=== PATIENT | female | born 1990 | race Caucasian/White ===

== ENCOUNTER 2021-06-16 14:05 | Outpatient (REF) | payer OTHER, SELFPAY ==
[2021-06-17 02:13] LABS: CT PCR NOT DETECTED (Not Detect.); NG PCR NOT DETECTED (Not Detect.)
[2021-06-17 13:12] LABS: BV Int Neg Control Negative (Negative); BV Int Pos Control Positive (Positive)
[2021-06-19 09:57] LABS: HPV mRNA E6/E7 rflx Not Detected (Not Detected)
== END 2021-06-16 14:06 | disposition home or self-care (01) ==
LOC: HO.LAB 14:05
PROVIDERS: PCP Nurse Practitioner Family; Visit Provider Advanced Practice Midwife
DX: Z30.432 Encounter for removal of intrauterine contraceptive device (principal); Z20.2 Contact with and (suspected) exposure to infections with a predominantly sexual mode of transmission
CPT/HCPCS: 58301; 87480; 87491; 87510; 87591; 87624; 87660; 88142

== ENCOUNTER → 2021-09-22 13:10 | Outpatient (BNVA) | payer OTHER, SELFPAY | PROVIDERS: PCP Nurse Practitioner Family; Visit Provider Advanced Practice Midwife | DX: Z30.09 Encounter for other general counseling and advice on contraception (principal) | CPT/HCPCS: 99212 ==

== ENCOUNTER 2022-11-08 10:42 | Outpatient (REF) | payer OTHER, SELFPAY ==
[2022-11-08 18:48] LABS: CT PCR NOT DETECTED (Not Detect.); NG PCR NOT DETECTED (Not Detect.)
[2022-11-09 14:04] LABS: BV Int Neg Control Negative (Negative); BV Int Pos Control Positive (Positive)
== END 2022-11-08 10:43 | disposition home or self-care (01) ==
LOC: HO.LNP 10:42
PROVIDERS: PCP Nurse Practitioner Family; Visit Provider Advanced Practice Midwife
DX: Z30.09 Encounter for other general counseling and advice on contraception (principal); Z20.2 Contact with and (suspected) exposure to infections with a predominantly sexual mode of transmission
CPT/HCPCS: 0353U; 87480; 87510; 87660

== ENCOUNTER 2022-11-08 10:42 | Outpatient (AMB) | payer OTHER, SELFPAY ==
--- NOTE | 2022-11-08 10:45 | MHC.OFFVIS ---
Intake Vital Signs 11/08/22 10:48 Height 5 ft 3 in Weight 142 lb BMI 25.2 BP 120/70 Intake Visit Reasons: Annual/DO NOT RS Intake Note: no concerns Desktop Support Consultant Required: No Information Interpreted: non-clinical & clinical Global Account Director: Global Account Director Present (Millie LAGOS) Accompanied by: Self / Same As Patient Allergies tree nut [TREE NUT] Allergy (Unknown, Verified 11/08/22 10:49) ANGIOEDEMA Medication List - Last Reconciled 11/08/22 by Juana Bhagat CNM No Known Home Meds Is last menstrual period known: Yes Last menstrual period: 10/21/22 HPI Annual/DO NOT RS HPI Details 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 She is not on the control pills anymore she started feeling like her moods for little bit different and she was sort of angry and snapping all the time to people and so she stop the pills and she feels like every things much more level and while she does notice mood changes at different times of her cycle she likes how she feels being off of the pills. She is tracking her cycle both with a nap and also being super aware of the anatomical and physiological changes she goes through throughout her cycle and can tell when she is ovulating and also she avoids sex at those times and is very careful she has been with this partner for about a year and is beginning to talk about future childbearing and so if they got it would not be awful. She does yoga and hiking and stays physically active and is healthy and eats well. She takes some natural herbal and mineral supplement PFSH Family History Paternal Grandfather Substance use disorder Maternal Grandfather Substance use disorder Maternal Uncle Substance use disorder Mental health disorder Social History (Updated 11/08/22 @ 10:51 by Millie Anderson CMA) Household Members: Family Housing: House Patient Tobacco Use Status: Former Tobacco user Quit Date: quit 2 years ago e-Cigarette/Vaping Use: Currently Using service: No Current occupational status: employed Current occupation: [employer] Current occupational exposures/hazards: No Sexual orientation: Straight/Heterosexual Gender identity: Female Cognitive needs: No Hearing needs: No Vision needs: No Female Reproductive History Menstrual Age of Menarche: 11 Duration of menses: 3-5 days Date of last menstrual period: 10/21/22 Total pregnancies: 2 Number of Living Children: 0 Ab induced: 2 Date of last pap smear: 06/17/21 History of abnormal pap smear: No Physical Exam Vital Signs: Last Vital Signs BP 120/70 11/08/22 10:48 BMI result Body Mass Index 25.2 Const General: healthy appearing, comfortable, no acute distress, well developed and alert Nutritional Appearance: average body habitus Orientation/consciousness: patient oriented x3 Limitations: no limitations HEENT Head: Yes normocephalic Neck Neck: Yes normal visual inspection Chest Chest palpation & inspection: normal inspection of the chest Breast/axilla inspection: normal inspection of the breasts and normal inspection of the axillae Breast/axilla palpation: normal palpation of the breasts and normal palpation of the axillae Resp Effort & Inspection: normal respiratory effort GI Inspection: Yes normal to inspection, No Abdominal wall edema and No distended Palpation (GI): Soft to palpation and nontender Other: Normal vulva normal pink healthy vagina normal appearing clear mucus cervix nulliparous with clear mucus that is becoming more gel like uterus small retroverted nontender adnexa nontender not enlarged good tone with Kegel General: Yes bladder normal to palpation External Female Exam: normal external appearance and normal appearance of the urethra Speculum Exam - Vagina: normal appearance of the vagina, normal palpation and normal vaginal discharge Speculum Exam - Cervix: normal appearance of the cervix, normal palpation and nontender Bimanual exam- vagina & uterus: normal bimanual exam, normal palpation, uterine size normal, bladder normal to palpation, consistency normal, normal palpation, uterine mobility normal, uterine shape normal, No Cervical tenderness present, non-tender and no cervical motion tenderness Bimanual Exam- Adnexa, other: normal adnexae, no masses, normal and No adnexal tenderness Neuro General: patient oriented x3 Assessment & Plan Assessment & Plan (1) Cervical cancer screening: Comment: 06/16/21 pap = neg w neg hpv. Code(s): Z12.4 - Encounter for screening for malignant neoplasm of cervix (2) Potential exposure to STD: Code(s): Z20.2 - Contact with and (suspected) exposure to infections with a predominantly sexual mode of transmission (3) Well woman exam with routine gynecological exam: Code(s): Z01.419 - Encounter for gynecological examination (general) (routine) without abnormal findings (4) control counseling: Code(s): Z30.09 - Encounter for other general counseling and advice on contraception Plan -----Discussed in this visit the following: healthy balanced diet, regular and consistent exercise, getting recommended health screens, doing the best she can for her particular health concerns, kegel exercises, pap smear screening and followup recommendations, mammography screening and SBE, normal changes in cycles in her life stage--- .----I reviewed available options for Control Methods and their associated side effect profiles. In particular, we discussed the method most of interest to her.-reviewed--I discussed being aware of the symptoms of ovulation both with cervical mucous changes , libido changes and all of the other indications, Reviewed with pt some of the optimal strategies for planning a , including achieving the best health she can before , including heathy balanced diet, exercise, wt loss to ideal BMI if appropriate, avoiding toxic substances and medications, not smoking, and taking a multivitamin w folic acid daily. Any specific health concerns should be managed before seeking/ putting oneself at risk of . In addition I reviewed normal cycles, fertility awareness and signs of ovulation, and timing to avoid, and achieve when she feel ready. I also discussed emotional and relationship and support readiness before embarking on . Also discussed that since we do not have a birthing center here anymore while we can provide care for women who choose to come here and then deliver at [facility] for a 1st most women would have lots of questions and I would recommend considering starting with the team that she would choose to help her throughout the journey so that she would get to adds all her questions all throughout the with the folks who would be delivering her. Testing for STIs was offered. She had a completely normal exam uterus is small and retroverted very clear cervix with clear gel that appears to be status post somewhat recent ovulation and that jobs with her awareness as well. RTC 1 year or p.r.n. her next Pap would be 5 years from last year's Coding Level of Care Code Est Pt Prev Care 18-39y(40218) Diagnoses Cervical cancer screening Z12.4 Potential exposure to STD Z20.2 Well woman exam with routine gynecological exam Z01.419 control counseling Z30.09
[2022-11-08 10:48] VITALS: BP 120/70; BMI 25.2
== END 2022-11-08 11:35 | disposition home or self-care (01) ==
LOC: HO.HWS 10:42
PROVIDERS: PCP Nurse Practitioner Family; Visit Provider Advanced Practice Midwife
DX: Z01.419 Encounter for gynecological examination (general) (routine) without abnormal findings (principal); Z12.4 Encounter for screening for malignant neoplasm of cervix; Z20.2 Contact with and (suspected) exposure to infections with a predominantly sexual mode of transmission; Z30.09 Encounter for other general counseling and advice on contraception
CPT/HCPCS: 99395

== ENCOUNTER 2023-03-22 08:58 | Outpatient (AMB) | payer OTHER, SELFPAY ==
--- NOTE | 2023-03-22 08:59 | A.OFFVIS_ITS ---
Intake Vital Signs 03/22/23 09:06 Height 5 ft 3 in Weight 146 lb BMI 25.9 BP 100/60 Intake Visit Reasons: preg consult Enterprise Account Executive Required: No Information Interpreted: clinical only Clinical Nursing Assistant: Clinical Nursing Assistant Present Allergies tree nut [TREE NUT] Allergy (Unknown, Verified 03/22/23 08:59) ANGIOEDEMA Is last menstrual period known: Yes Last menstrual period: 01/29/23 Do you need a note to return to daycare/school/sports/work: No PFSH Family History Paternal Grandfather Substance use disorder Maternal Grandfather Substance use disorder Maternal Uncle Substance use disorder Mental health disorder Social History Household Members: Family Housing: House Patient Tobacco Use Status: Former Tobacco user Quit Date: quit 2 years ago e-Cigarette/Vaping Use: Currently Using service: No Current occupational status: employed Current occupation: [employer] Current occupational exposures/hazards: No Sexual orientation: Straight/Heterosexual Gender identity: Female Cognitive needs: No Hearing needs: No Vision needs: No Female Reproductive History Menstrual Age of Menarche: 11 Date of last menstrual period: 01/29/23 control method: none Total pregnancies: 1 Full term: 0 Date of last pap smear: 06/17/21 (negative) History of abnormal pap smear: No Physical Exam Vital Signs: Last Vital Signs BP 100/60 03/22/23 09:06 BMI result Body Mass Index 25.9 Coding
[2023-03-22 09:06] VITALS: BP 100/60; BMI 25.9
--- NOTE | 2023-03-22 09:15 | A.OFFVISPN_ITS ---
Intake Vital Signs 03/22/23 09:06 Height 5 ft 3 in Weight 146 lb BMI 25.9 BP 100/60 Intake Visit Reasons: preg consult Allergies tree nut [TREE NUT] Allergy (Unknown, Verified 03/22/23 08:59) ANGIOEDEMA Medication List - Last Reconciled 03/22/23 by Juana Bhaagt CNM No Known Home Meds PFSH Family History Paternal Grandfather Substance use disorder Maternal Grandfather Substance use disorder Maternal Uncle Substance use disorder Mental health disorder Social History Household Members: Family Housing: House Patient Tobacco Use Status: Former Tobacco user Quit Date: quit 2 years ago e-Cigarette/Vaping Use: Currently Using service: No Current occupational status: employed Current occupation: [employer] Current occupational exposures/hazards: No Sexual orientation: Straight/Heterosexual Gender identity: Female Cognitive needs: No Hearing needs: No Vision needs: No Female Reproductive History Menstrual Age of Menarche: 11 History History 2 Elective abortions 2 Para Spontaneous abortions 2 Hx # Term Pregnancies Ectopic pregnancies Hx # Pregnancies Multiple births Results AMB Test Urine AMB Test Urine Positive Last Edit by Anselmo Dominguez CMA on 03/22/23 09:22 Results Reviewed Results Reviewed: Laboratory Last Values [facility] Positive 03/22/23 09:21 Coding Assessment & Plan Assessment & Plan Orders: Orders AMB HCG Urine Test Today Z32.01 - Encounter for test, result positive
--- NOTE | 2023-03-22 09:25 | MHC.OFFVIS ---
Intake Vital Signs 03/22/23 09:06 03/22/23 09:26 Height 5 ft 3 in Weight 146 lb BMI 25.9 25.9 BP 100/60 Intake Visit Reasons: preg consult Technical Publications Manager Required: No Information Interpreted: clinical only Collar Band Creaser: Collar Band Creaser Present Allergies tree nut [TREE NUT] Allergy (Unknown, Verified 03/22/23 08:59) ANGIOEDEMA Medication List - Last Reconciled 03/22/23 by Juana Bhagat CNM No Known Home Meds Is last menstrual period known: Yes Last menstrual period: 01/29/23 Patient : Yes Do you need a note to return to daycare/school/sports/work: No HPI preg consult HPI Details Patient is here for consult visit she stopped the pills sometime ago and was beginning to have conversations about openness to though the exact occurrence is a surprise but she and her partner are happy. Her last menstrual period was 01/29/2023. But she did not think that she had sex and a time that she was ovulating so that pees is a little bit of a mystery. 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 She has been staying with her boyfriend in [place] and is considering midwifery practices in the [place] area. She is healthy and takes care of herself and eats very healthy and is paying attention to what is safe to eat in she is finding that if she keeps crackers by the bed and eats when she 1st wakes up that helps her through the day so far. She is curious about how far along she is. by her dates she would be 7 weeks and 3 days. [facility] Family History Paternal Grandfather Substance use disorder Maternal Grandfather Substance use disorder Maternal Uncle Substance use disorder Mental health disorder Social History Household Members: Family Housing: House Patient Tobacco Use Status: Former Tobacco user Quit Date: quit 2 years ago e-Cigarette/Vaping Use: Currently Using service: No Current occupational status: employed Current occupation: [employer] Current occupational exposures/hazards: No Sexual orientation: Straight/Heterosexual Gender identity: Female Cognitive needs: No Hearing needs: No Vision needs: No Female Reproductive History Menstrual Age of Menarche: 11 Date of last menstrual period: 01/29/23 Date of last pap smear: 06/17/21 History of abnormal pap smear: No Physical Exam Vital Signs: Last Vital Signs BP 100/60 03/22/23 09:06 BMI result Body Mass Index 25.9 Results AMB Test Urine AMB Test Urine Positive Last Edit by Anselmo Dominguez CMA on 03/22/23 09:22 Results Reviewed Results Reviewed: Laboratory Last Values [facility] Clinic Positive 03/22/23 09:21 Assessment & Plan Assessment & Plan (1) Early stage of : Comment: LMP 01/29/2023, NATALIE 11/06/2023 by dates 7 and 3 sevens today, nausea in last couple of weeks will get dating ultrasound patient will be seeking care in the [facility] Code(s): Z34.90 - Encounter for supervision of normal , unspecified, unspecified trimester Plan ---I reviewed the patient's medical history and risk factors for . I reviewed her menstrual history and regularity, and reviewed the dating of her last menstrual period and other indicators. I reviewed where she is in this , and what to expect in this early stage of the . ---I reviewed the routines of care. I reviewed the options open to her including care here and that delivery does not occur here; it occurs currently at our referring institution.. I also reviewed the options of receiving care and delivery at [facility], and [facility] or [facility], or the [facility] if appropriate. I reviewed high risk factors that would necessitate a transfer of her care to [facility]. ---I reviewed basic good health and ways to achieve a healthy and goals. I reviewed warning signs that would necessitate calling us: for instance, severe pain, bleeding, severe nausea and vomiting, such that she is unable to keep anything down and feeling weak. ---I discussed next steps, if she continues care here, including scheduling of the cement mixer driver visit, and blood work, scheduling of the OB physical visit with a care provider, and timing and scheduling of initial ultrasounds and genetic screening and their purpose. I ordered vitamins for her if she did not have them. I reviewed basic healthy goals with diet and active exercise and activity and avoidance of toxic substances.. I reviewed emotional supports and stressors in her life, and family relationship and supports including partner supports.. I am ordering a dating ultrasound for her and in the meantime she will start calling and deciding where she wants to go get care in the [facility] area and we did discuss the options and I did recommend that she would receive good care at [facility] midwifery. We will have a visit and it can be a tele visit after the results of the ultrasound are in. Orders: Orders AMB HCG Urine Test Today Z32.01 - Encounter for test, result positive US OB <= 14 weeks fetus Today Z34.90 - Encounter for supervision of normal , unspecified, unspecified trimester Coding Level of Care Code Est Pt Level 3 (37111) Diagnoses Early stage of Z34.90
[2023-03-22 09:26] VITALS: BMI 25.9
== END 2023-03-22 10:27 | disposition home or self-care (01) ==
LOC: HO.HWSM 08:58
PROVIDERS: PCP Nurse Practitioner Family; Visit Provider Advanced Practice Midwife
DX: Z32.01 Encounter for pregnancy test, result positive (principal); Z34.90 Encounter for supervision of normal pregnancy, unspecified, unspecified trimester
CPT/HCPCS: 99213

== ENCOUNTER → 2023-03-22 08:58 | Outpatient (BNVA) | payer OTHER, SELFPAY | PROVIDERS: PCP Nurse Practitioner Family; Visit Provider Advanced Practice Midwife | DX: Z34.90 Encounter for supervision of normal pregnancy, unspecified, unspecified trimester (principal) | CPT/HCPCS: 81025; 99212 ==

== ENCOUNTER 2023-04-17 15:03 | Outpatient (REF) | payer OTHER, SELFPAY ==
--- NOTE | ~2023-04-17 | US_ITS ---
EXAMINATION: US OBSTETRICAL ULTRASOUND CLINICAL INFORMATION: For size and dates. COMPARISON: None available. LMP: 01/29/2023. Gestational age by maternal dates is 11 weeks and 1 day. Estimated date of delivery by maternal dates is 11/05/2023. TECHNIQUE: Ultrasound of the maternal pelvis is performed using transabdominal transducer. M-mode Doppler is also performed. FINDINGS: There is a single intrauterine gestational sac with visible yolk sac, embryo/fetus, and cardiac activity. There is no significant subchorionic hemorrhage or hematoma. HR: 172 beats per minute. CRL (crown rump length): 5.14 cm (11 weeks and 6 days +/- 4 days). NATALIE (estimated date of delivery): 10/31/2023 +/- 4 days. MATERNAL ADNEXA: The right maternal ovary is not visualized. The left maternal ovary measures 3.1 x 2.0 x 2.3 cm. There is no significant maternal adnexal mass. No maternal pelvic ascites. A 3.2 x 2.1 x 1.7 cm Joselyn duct cyst is seen. US/US OB <= 14 weeks fetus IMPRESSION: 1. Single intrauterine gestation with ultrasound gestational age of 11 weeks and 6 days +/- 4 days. 2. Estimated date of delivery is 10/31/2023 +/- 4 days. 3. The right ovary is not visualized. 4. No maternal adnexal mass or pelvic ascites. 5. A 3.2 cm Joselyn duct cyst is seen.
== END 2023-04-17 15:04 | disposition home or self-care (01) ==
LOC: HO.US 15:03
PROVIDERS: PCP Nurse Practitioner Family; Visit Provider Advanced Practice Midwife
DX: Z34.90 Encounter for supervision of normal pregnancy, unspecified, unspecified trimester (principal)
CPT/HCPCS: 76801

== ENCOUNTER 2023-04-24 09:21 | Outpatient (AMB) | payer OTHER, SELFPAY ==
--- NOTE | 2023-04-24 09:21 | MHC.OFFVIS ---
Intake Intake Visit Reasons: TV US follow up/pls dial exactly Glueline Worker Required: No Allergies tree nut [TREE NUT] Allergy (Unknown, Verified 04/24/23 09:21) ANGIOEDEMA Medication List - Last Reconciled 04/24/23 by Juana Bhagat CNM No Known Home Meds Is last menstrual period known: Yes Last menstrual period: 01/26/23 Post menopausal: No HPI TV US follow up/pls dial exactly HPI Details This is a tele visit to review patient's ultrasound that was done on 04/17/2023 which placed her at 11 weeks and 6 days yielding an NATALIE of 10/31/2023 this was very close to an NATALIE there was established by her LMP of 01/29/2023. She had been seen in March on 03/22/2023 and full discussion of options of care sites had occurred as well as discussion of next steps testing that would be recommended including 1st trimester screens. The ultrasound did not occur for another 3 and half weeks and this is the follow-up visit. 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 She is taking her vitamins she has not yet decided where she would want to go for care but she is speaking with her boyfriend about this and thinking about things that she will want her delivery and hoping he will advocate for her and her plan. She is staying mostly with her boyfriend in [place] currently. [facility] Family History Paternal Grandfather Substance use disorder Maternal Grandfather Substance use disorder Maternal Uncle Substance use disorder Mental health disorder Social History Household Members: Family Housing: House Patient Tobacco Use Status: Former Tobacco user Quit Date: quit 2 years ago e-Cigarette/Vaping Use: Currently Using service: No Current occupational status: employed Current occupation: [employer] Current occupational exposures/hazards: No Sexual orientation: Straight/Heterosexual Gender identity: Female Cognitive needs: No Hearing needs: No Vision needs: No Female Reproductive History Menstrual Age of Menarche: 11 Date of last menstrual period: 01/26/23 Results Reviewed Results Reviewed: Patient: Josiane Medrano MR#: [id number] : 1990 Acct:[id number] Age/Sex: 32 / F ADM Date: 04/17/23 Loc: HO.US Attending Dr: Juana Bhagat CNM Ordering Physician: Juana Bhagat CNM Date of Service: 04/17/23 Procedure(s): US OB <= 14 weeks fetus Accession Number(s): [id number] cc: Bi Murphy-; Juana Bhagat CNM~ EXAMINATION: US OBSTETRICAL ULTRASOUND CLINICAL INFORMATION: For size and dates. COMPARISON: None available. LMP: 01/29/2023. Gestational age by maternal dates is 11 weeks and 1 day. Estimated date of delivery by maternal dates is 11/05/2023. TECHNIQUE: Ultrasound of the maternal pelvis is performed using transabdominal transducer. M-mode Doppler is also performed. FINDINGS: There is a single intrauterine gestational sac with visible yolk sac, embryo/fetus, and cardiac activity. There is no significant subchorionic hemorrhage or hematoma. HR: 172 beats per minute. CRL (crown rump length): 5.14 cm (11 weeks and 6 days +/- 4 days). NATALIE (estimated date of delivery): 10/31/2023 +/- 4 days. MATERNAL ADNEXA: The right maternal ovary is not visualized. The left maternal ovary measures 3.1 x 2.0 x 2.3 cm. There is no significant maternal adnexal mass. No maternal pelvic ascites. A 3.2 x 2.1 x 1.7 cm Joselyn duct cyst is seen. US/US OB <= 14 weeks fetus IMPRESSION: 1. Single intrauterine gestation with ultrasound gestational age of 11 weeks and 6 days +/- 4 days. 2. Estimated date of delivery is 10/31/2023 +/- 4 days. 3. The right ovary is not visualized. 4. No maternal adnexal mass or pelvic ascites. 5. A 3.2 cm Joselyn duct cyst is seen. Dictated By: Bi Arenas MD Signed By: <Electronically signed by Bi Arenas MD in OV> 04/19/23 1119 DD/ 1600 TD/TT: Tractor Trailer Moving Van Driver: JED Assessment & Plan Assessment & Plan (1) Early stage of : Comment: LMP 01/29/2023, NATALIE 11/06/2023 by dates 7 and 3 sevens today, nausea in last couple of weeks will get dating ultrasound patient will be seeking care in the [place] area Code(s): Z34.90 - Encounter for supervision of normal , unspecified, unspecified trimester Plan This is a tele visit to review patient's ultrasound that was done on 04/17/2023 which placed her at 11 weeks and 6 days yielding an NATALIE of 10/31/2023 this was very close to an NATALIE there was established by her LMP of 01/29/2023. She had been seen in March on 03/22/2023 and full discussion of options of care sites had occurred as well as discussion of next steps testing that would be recommended including 1st trimester screens. The ultrasound did not occur for another 3 and half weeks and this is the follow-up visit. 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 She is taking her vitamins she has not yet decided where she would want to go for care but she is speaking with her boyfriend about this and thinking about things that she will want her delivery and hoping he will advocate for her and her plan. She is staying mostly with her boyfriend in [place] currently. I again reviewed options for care including staying with us and delivering at [facility] versus finding 1 of the other practices in I did review all of them again. She has the list at home. She is still thinking about it. In the meantime it is now further long in the and she is now 13 weeks and 0 days today it is too late to ordered the 1st trimester nuchal translucency ultrasound or first-trimester blood work screening. I asked her if I had her permission to go ahead and order the panoramic testing for her which is a more comprehensive screening for genetic anomalies and that we would proceed and schedule appointments with the RN for the intake and on from that with care and if she decides to go elsewhere than she would simply make an appointment elsewhere and sign for record transfer. Discussed the challenge of sleeping sometimes when we have things on her mind. Suggested writing down any worries she has so she can discuss them at a visit if that is where she needs to talk about it. She has not having any trouble with eating or anything. Message sent to nurses about the need for the panoramic and motor vehicle emissions inspector. Telehealth Telehealth Location of provider rendering services: practice address Location of patient: address on file Patient Identification confirmed using: Name, : Yes Telehealth method: video Patient verbally consented to treatment: Yes Patient verbally consented to billing insurance company: Yes Patient informed of any privacy concerns related to visit: Yes Coding Level of Care Code Tele Est Pt Level 3 (05069) Diagnoses Early stage of Z34.90 Time Spent (min) 28 Comment 2cr/21 video w pt/ 5 charting=28
== END 2023-04-24 11:10 | disposition home or self-care (01) ==
LOC: HO.HWSM 09:21
PROVIDERS: PCP Nurse Practitioner Family; Visit Provider Advanced Practice Midwife
DX: Z34.90 Encounter for supervision of normal pregnancy, unspecified, unspecified trimester (principal)
CPT/HCPCS: 99213

== ENCOUNTER → 2023-04-24 09:21 | Outpatient (BNVA) | payer OTHER, SELFPAY | PROVIDERS: PCP Nurse Practitioner Family; Visit Provider Advanced Practice Midwife ==

== ENCOUNTER 2023-04-27 10:01 | Outpatient (AMB) | payer OTHER, SELFPAY ==
--- NOTE | 2023-04-27 10:04 | MHC.OFFVISPN ---
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: No Information Interpreted: clinical only Accompanied by: Significant Other Allergies tree nut [TREE NUT] Allergy (Unknown, Verified 04/24/23 09:21) ANGIOEDEMA Medication List - Last Reconciled 04/27/23 by Pretty Gaitan LPN No Known Home Meds Is last menstrual period known: Yes Last menstrual period: 01/26/23 Post menopausal: No Patient : Yes Do you need a note to return to daycare/school/sports/work: No PFSH Surgical History (Updated 04/27/23 @ 10:10 by Pretty Gaitan LPN) H/O hand surgery Family History Paternal Grandfather Substance use disorder Maternal Grandfather Substance use disorder Maternal Uncle Substance use disorder Mental health disorder Social History (Updated 04/27/23 @ 10:11 by Pretty Gaitan LPN) Household Members: Family Housing: House Patient Tobacco Use Status: Former Tobacco user Quit Date: quit 2 years ago e-Cigarette/Vaping Use: Currently Using service: No Current occupational status: employed Current occupation: [employer] Current occupational exposures/hazards: No Sexual orientation: Straight/Heterosexual Gender identity: Female Cognitive needs: No Hearing needs: No Vision needs: No Female Reproductive History Menstrual Age of Menarche: 11 Duration of menses: 3-5 days Date of last menstrual period: 01/26/23 control method: none Total pregnancies: 3 Ab induced: 2 History of abnormal pap smear: No History History 3 Elective abortions 2 Para 0 Spontaneous abortions Hx # Term Pregnancies 0 Ectopic pregnancies Hx # Pregnancies 0 Multiple births Education First Trimester Education Checklist Plans/Education - by Trimester Counseled: Yes HIV and other routine tests: discussed Infectious disease exposure: chicken pox immunity discussed Influenza vaccine: discussed Nutrition and weight gain counseling: special diet: discussed Sexual activity: discussed Exercise: discussed Tobacco use: Yes Tobacco (Ask, Advise, Assess, Assist, and Arrange): discussed Alcohol use: No Use of any medications (including supplements, vitamins, herbs, or OTC drugs): discussed Substance use: No Substance use (Ask, Advise, Assess, Assist, and Arrange): discussed Environmental/home/work hazards: discussed Domestic violence: discussed Travel: discussed Seatbelt use: discussed Toxoplasmosis precautions (cats/raw meat): discussed Childbirth education/discussion: symptoms education/discussion and group B strep education/discussion Risk factors identified by history: discussed Testing education: cystic fibrosis testing education done, TB testing education done and group B strep education danger signs: Yes education packet: Child education class information, symptoms, vitamins and iron, diet and weight gain, fish and mercury intake, listeriosis prevention, caffeine use, eating disorder history, exercise and activity, work issues, sexual activity, x-ray exposure, medication use, toxoplasmosis precautions, sauna/hot tub use, dental care and HIV education and counseling Mental health: discussed Anticipated course of care: discussed Indications for ultrasound: discussed Health center information: nature of practice discussed, personnel described, visit schedule reviewed, no show policy reviewed, ultrasounds policy reviewed, coverage 24 hours a day, participation of father in care and office visits and signs of miscarriage reviewed Questionnaire History History : 3 Visit NATALIE Calculator Estimated Delivery Date Method Current WG Current Estimate 10/31/23 Ultrasound #1 13w 2d Other Estimates 11/02/23 LMP (Certain) 13w 0d Expected Delivery Route/Plan Vaginal delivery. Specific Issues/Plans HX of JUDITH, Vaping 3xdaily, trying to quit OB Visit Log Initial Weight: 68.039 kg Date <del>?</del> EGA Weight Gest Week Fundal Ht Present FHR move Efface % Edema BP PrePreg We Weight GTT <del>?</del> Glucose LV Protein Blood Type 04/27/23 <del>?</del> 13w 2d 70.392 kg (+2.353 kg) 70.392 kg <del>?</del> Notes Visit Date: 04/27/23 Last Updated by: Pretty Gaitan LPN Josiane is here with her partner today for her OB intake. LMP103/28/22 NATALIE 11/02/23. . They are both very happy about the . Pt reports no problems with eating or drinking. She does report hx of JUIDTH in her 20's, and had to have hand surgery from infection. Discussed with patient healthy food choices, keep well hydrated. Pt denies any FH of diabetes. Discussed next visit will be for her OB physical, and she will be given paperwork for [facility] at that time. 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 She would like to receive her care here, and is aware if she should become high risk , she would be transferred to [facility]. Her next u/s at 20 weeks will be for anatomy and pt aware it will be at [facility] as well as her delivery. Discussed how to reach office after hours. labs ordered and OB PE scheduled. Pt is interested in . packet was given at visit. Initial Infection History & Risk Profile History of STDs: Yes HIV risk evaluation: low risk Hepatitis B risk evaluation: low risk Patient or partner has history of Genital Herpes: No Varicella/chicken pox status: previous disease Genetic Screening & Geomagnetist Symptoms since LMP: breast tenderness, Nausea vomiting. Genetic Screening/Teratology Counseling - Includes patient, baby's father, or anyone in either family with: 1. Patient's age 35 years or older as of estimated date of delivery: No 2. Thalassemia (Namibian, [place] Islander, Mediterranean, or Background); MCV less than 80: Yes 3. Neural Tube Defect (Meningomyelocele, Spina Bifida, or Anencephaly): No 4. Congenital Heart Defect: No (fob 1st cousin with DS) 5. Down Syndrome: Yes 6. Adria-Sachs (Ashkenazi Shinto, Cajun, [place]an [place]): No 7. Barb Disease (Ashkenazi Shinto): No 8. Familial Dysautonomia (Ashkenazi Shinto): No 9. Sickle Cell Disease or Trait (): No 10. Hemophilia or other blood disorders: No 11. Muscular Dystrophy: No 12. Cystic Fibrosis: No 13. Summit's Chorea: No 14. Intellectual disability/Autism: No 15. Other inherited genetic or chromosomal disorder: No 16. Maternal Metabolic Disorder (EG,TYPE 1 Diabetes, PKU): No 17. Patient or baby's father had a child with defects not listed above: No 18. Recurrent loss or a stillbirth: No 19. Medications (including supplements, vitamins, herbs or otc drugs)/illicit/recreational drugs/alcohol since last menstrual period: Yes 20. Any other: No Infection History 1. Live with someone with TB or exposed to TB: No 2. Rash or viral illness since last menstrual period: Yes (flu vaccine) 3. Hepatitis B,C: No 4. History of STD: chlamydia Other (see comments) Source: [employer] Coding Level of Care Code Established Pt Kaye Patient Type Established History Problem Focused Exam Problem Focused Medical Decision Making Low Complexity Time Spent (min) 45 Assessment & Plan Assessment & Plan Orders: Orders Complete Blood Count no Diff Today Z. - Encounter for test, result positive Syphilis Screen Today Z. - Encounter for test, result positive Hepatitis B Surface Antigen Today Z32. - Encounter for test, result positive Varicella IgG Antibody Today Z32. - Encounter for test, result positive Hepatitis C Antibody Today Z32. - Encounter for test, result positive Rubella IgG Antibody Today Z32. - Encounter for test, result positive Urine Culture Today Z32. - Encounter for test, result positive HIV Ab/Ag Today Z32. - Encounter for test, result positive Drug Screen Urine Today Z32. - Encounter for test, result positive Screen Today Z32. - Encounter for test, result positive CF Carrier Screen Today Z32. - Encounter for test, result positive
[2023-04-27 10:05] VITALS: BMI 27.5
== END 2023-04-27 12:32 | disposition home or self-care (01) ==
LOC: HO.HWS 10:01
PROVIDERS: PCP Nurse Practitioner Family; Visit Provider Advanced Practice Midwife
DX: Z34.90 Encounter for supervision of normal pregnancy, unspecified, unspecified trimester (principal)
CPT/HCPCS: 25942

== ENCOUNTER → 2023-04-27 10:01 | Outpatient (BNVA) | payer OTHER, SELFPAY | PROVIDERS: PCP Nurse Practitioner Family; Visit Provider Advanced Practice Midwife | DX: Z34.81 Encounter for supervision of other normal pregnancy, first trimester (principal); Z3A.13 13 weeks gestation of pregnancy | CPT/HCPCS: 99212 ==

== ENCOUNTER 2023-05-04 12:42 | Outpatient (REF) | payer OTHER, SELFPAY ==
[2023-05-04 15:19] LABS: Hematocrit 35.9 % (37.0-47.0); Hemoglobin 12.5 g/dl (12.0-16.0); Mean Corpuscular HGB Conc 34.8 g/dl (31.0-35.0); Mean Corpuscular Hemoglobin 30.3 pg (27.0-33.0); Mean Corpuscular Volume 87.1 fL (80.0-98.0); Mean Platelet Volume 10.6 fL (9.4-12.3); Platelet Count 189 X10*3/uL (160-400); Red Blood Count 4.12 X10*6/uL (4.20-5.50); Red Cell Distribution Width 12.2 % (11.0-16.0); White Blood Count 9.2 X10*3/uL (4.8-10.8)
[2023-05-04 15:37] LABS: Amphetamine Screen Urine Not Detected (Not Detect); Barbiturates, Urine Not Detected (Not Detect); Benzodiazepines Screen Urine Not Detected (Not Detect); Cannabinoid Screen Urine POSITIVE (Not Detect); Cocaine Screen Urine Not Detected (Not Detect); Fentanyl, urine Not Detected (Not Detect); Opiate Screen Urine Not Detected (Not Detect); Phencyclidine Screen Urine Not Detected (Not Detect)
[2023-05-05 07:52] LABS: Syphilis Screen Nonreactive (Nonreactive)
[2023-05-05 08:18] LABS: HBsAGNum1 0.54 S/CO (0.00-0.99); HIV AB/AG Nonreactive (Nonreactive); HIV Num 1 0.06 S/CO (0.00-0.99); Hepatitis B Surface Antigen Negative (Negative); ~Hepatitis C Antibody Nonreactive (Nonreactive)
[2023-05-05 11:49] LABS: CT PCR NOT DETECTED (Not Detect.); NG PCR NOT DETECTED (Not Detect.)
[2023-05-05 13:49] LABS: Rubella IgG Antibody 1.68 Index
[2023-05-05 14:21] LABS: BV Int Neg Control Negative (Negative); BV Int Pos Control Positive (Positive)
[2023-05-16 13:28] LABS: CF Ethnicity NG; Cystic Fibrosis NEGATIVE (NEGATIVE)
== END 2023-05-04 12:43 | disposition home or self-care (01) ==
LOC: HO.LAB 12:42
PROVIDERS: PCP Nurse Practitioner Family; Visit Provider Advanced Practice Midwife
DX: O26.892 Other specified pregnancy related conditions, second trimester (principal); O99.342 Other mental disorders complicating pregnancy, second trimester; F32.A Depression, unspecified; Z3A.14 14 weeks gestation of pregnancy; Z20.2 Contact with and (suspected) exposure to infections with a predominantly sexual mode of transmission
CPT/HCPCS: 0353U; 80307; 81003; 81220; 85027; 86762; 86780; 86787; 86803; 86850; 86900; 87086; 87340; 87389; 87480; 87510; 87660; 99212

== ENCOUNTER 2023-05-04 12:42 | Outpatient (AMB) | payer OTHER, SELFPAY ==
--- NOTE | 2023-05-04 12:46 | MHC.OFFVISPN ---
Intake Vital Signs 05/04/23 12:47 Height 5 ft 3 in Weight 154 lb BMI 27.3 BP 100/58 L Intake Visit Reasons: OBPE Intake Note: EPDS 10 Crisis Intervention Counselor: Crisis Intervention Counselor Present (Mera) Allergies tree nut [TREE NUT] Allergy (Unknown, Verified 05/04/23 12:47) ANGIOEDEMA Patient : Yes [facility] Medical History (Updated 05/04/23 @ 13:40 by Zahira Enciso CNM) Supervision of normal first Surgical History H/O hand surgery Family History Paternal Grandfather Substance use disorder Maternal Grandfather Substance use disorder Maternal Uncle Substance use disorder Mental health disorder Social History Household Members: Family Housing: House Patient Tobacco Use Status: Former Tobacco user Quit Date: quit 2 years ago e-Cigarette/Vaping Use: Currently Using service: No Current occupational status: employed Current occupation: [employer] Current occupational exposures/hazards: No Sexual orientation: Straight/Heterosexual Gender identity: Female Cognitive needs: No Hearing needs: No Vision needs: No Female Reproductive History Menstrual Age of Menarche: 11 Total pregnancies: 3 Full term: 2 Ab induced: 2 Date of last pap smear: 06/16/21 (neg pap and hpv) History History 3 Elective abortions 2 Para 0 Spontaneous abortions Hx # Term Pregnancies 2 Ectopic pregnancies Hx # Pregnancies 0 Multiple births Questionnaire History History : 3 [place] Depression [place] Depression Scale I have been able to laugh and see the funny side of things: As much as I always could I have looked forward with enjoyment to things: As much as I ever did I have blamed myself unnecessarily when things went wrong: Yes, some of the time I have been anxious or worried for no reason: Yes, sometimes I have felt scared of panicky for no very good reason at all: No, not so much Things have been getting on top of me: No, most of the time I have coped quite well I have been so unhappy that I have had difficulty sleeping: Yes, sometimes I have felt sad or miserable: Not very often I have been so unhappy that I have been crying: Only occasionally The thought of harming myself has occurred to me: Never 10 Visit NATALIE Calculator Estimated Delivery Date Method Current WG Current Estimate 10/31/23 Ultrasound #1 14w 2d Other Estimates 11/02/23 LMP (Certain) 14w 0d Expected Delivery Route/Plan Vaginal delivery. Specific Issues/Plans 32 Yr. old G 3 P 2 EDC: by Blood type: Problem List: 1. Depression, since age 11. EPDS=10, no on #10. She wang well. Had counseling in the past. Declines referral at initial visit. She is going to reach out to prior counselor and let her know she is to check in and stay in the loop if she needs her . 2. Vaping: has cut done. Discussed strategies to quit. 3. Hx of MRSA Testing: Panorama/and or First Tri screen: risk NT scan: Not completed due to scheduling timeframe AFP: FAS: Glucose: early 28 wk glucose: CBC 1st Tri: 28 wk. 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 14.2wk. OBPE. Taking PNV, Doing well with no concerns. Good appetite, stays well hydrated. Denies any LOF, VB, abd. pain or urinary symptoms. She was unaware she needed to do her labs after her last visit. Happy with heart rate today. Reviewed: Abd pn/VB, when to seek emergent care. Encouraged a healthy well balanced diet, regular walking/exercise in . Hydrate well, 8-10 glasses of water daily. Advised labs today along with her panoramic screening. Order placed for FAS to be booked in the next 4-5 weeks not on a Monday. RTO 4wks. Visit Date: 04/27/23 Last Updated by: Pretty Gaitan LPN Josiane is here with her partner today for her OB intake. LMP103/28/22 NATALIE 11/02/23. . They are both very happy about the . Pt reports no problems with eating or drinking. She does report hx of JUDITH in her 20's, and had to have hand surgery from infection. Discussed with patient healthy food choices, keep well hydrated. Pt denies any FH of diabetes. Discussed next visit will be for her OB physical, and she will be given paperwork for [facility] at that time. 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 She would like to receive her care here, and is aware if she should become high risk , she would be transferred to [facility]. Her next u/s at 20 weeks will be for anatomy and pt aware it will be at [facility] as well as her delivery. Discussed how to reach office after hours. labs ordered and OB PE scheduled. Pt is interested in . packet was given at visit. Review of Systems Const All systems reviewed & are unremarkable except as noted in HPI and below Reports as per HPI Eyes Reports no additional complaints ENT Reports no additional complaints Card Reports no additional complaints Resp Reports no additional complaints GI Reports as per HPI and Reports no additional complaints Reports as per HPI Musc Reports no additional complaints Skin/Breast Reports as per HPI Neuro Reports no additional complaints Psych Reports no additional complaints Endo Reports no additional complaints Juan Luis/Lymph Reports no additional complaints Aller/Immun Reports no additional complaints Results AMB Urinalysis, Automated UA Leukoctes 0.5 [place]/uL Last Edit by DEMOND Flores on 05/04/23 12:58 UA Nitrite Negative Last Edit by Erica Boateng Abby on 05/04/23 12:58 UA Urobilinogen 0 mg/dL Last Edit by Erica Boateng [facility] on 05/04/23 12:58 UA Protein 0 mg/dL Last Edit by Erica Boateng [facility] on 05/04/23 12:58 UA pH 7.5 Last Edit by Erica Boateng [facility] on 05/04/23 12:58 UA Blood 0 Saqib/uL Last Edit by Erica Boateng Abby on 05/04/23 12:58 UA Specific [place] 1.005 Last Edit by Erica Boateng Abby on 05/04/23 12:58 UA Ketone Negative Last Edit by Erica Boateng [facility] on 05/04/23 12:58 UA Bilirubin 0 mg/dL Last Edit by Erica Boateng [facility] on 05/04/23 12:58 UA Glucose 0 mg/dL Last Edit by Erica Boateng [facility] on 05/04/23 12:58 Exam Const Constitutional General: cooperative, healthy appearing, no acute distress, well developed and alert Orientation/consciousness: patient oriented x3 HENMT Head: normal to inspection Eyes General: appearance normal, both eyes and all related structures Neck Neck: normal visual inspection Thyroid: Thyroid normal Chest Chest palpation & inspection: normal inspection of the chest and other (no puckering, dimpling, peau de orange, retraction, discharge, masses) Breast/axilla inspection: normal inspection of the breasts and Other (Bilateral barbell piercing) Breast/axilla palpation: normal palpation of the breasts Resp Effort & Inspection: normal respiratory effort Auscultation: clear to auscultation bilaterally Cardio Rate: regular rate Rhythm: regular rhythm Heart sounds: S1 normal heart sound present GI Inspection (GI): normal to inspection Palpation (GI): Soft to palpation General Exam: Yes bladder normal to palpation External Female Exam: normal external appearance and normal appearance of the urethra Urethra: normal appearance of the urethra Speculum exam - vagina: normal appearance of the vagina and normal discharge Speculum Exam - Cervix: normal appearance of the cervix Bimanual exam- vagina & uterus: normal bimanual exam, normal palpation, bladder normal to palpation, normal palpation, non-tender and enlarged (14-15 week size) Bimanual Exam- Adnexa, other: no masses Skin General skin exam: no rashes or lesions noted Rashes: no rashes Other: Multiple tattoos and piercings Neuro Cognition (Neuro): normal cognition Extrem General: normal to inspection Psych Attitude: cooperative Thought process: Normal thought process present Results Reviewed Results Reviewed: Laboratory Last Values Urine pH (Auto) 7.5 05/04/23 12:57 Specific [place] (Auto) 1.005 05/04/23 12:57 Urine Protein (Auto) 0 mg/dL 05/04/23 12:57 Glucose (UA)(Auto) 0 mg/dL 05/04/23 12:57 Urine Ketones (Auto) Negative 05/04/23 12:57 Urine Blood (Auto) 0 Saqib/uL 05/04/23 12:57 Urine Nitrite (Auto) Negative 05/04/23 12:57 Urine Bilirubin (Auto) 0 mg/dL 05/04/23 12:57 Urine Urobilinogen (Auto) 0 mg/dL 05/04/23 12:57 Leukocyte Esterase (Auto) 0.5 [place]/uL 05/04/23 12:57 Coding Level of Care Code Coy Assessment & Plan Assessment & Plan Orders: Orders AMB Urinalysis Automated Today Z34.90 - Encounter for supervision of normal , unspecified, unspecified trimester US OB /maternal detail 5 Weeks Z34.00 - Encounter for supervision of normal first , unspecified trimester Bacterial Vaginosis Panel Today Z20.2 - Contact with and (suspected) exposure to infections with a predominantly sexual mode of transmission CT NG by PCR Today Z20.2 - Contact with and (suspected) exposure to infections with a predominantly sexual mode of transmission
[2023-05-04 12:47] VITALS: BP 100/58; BMI 27.3
== END 2023-05-04 13:55 | disposition home or self-care (01) ==
LOC: HO.HWS 12:42
PROVIDERS: PCP Nurse Practitioner Family; Visit Provider Advanced Practice Midwife
DX: Z34.90 Encounter for supervision of normal pregnancy, unspecified, unspecified trimester (principal)
CPT/HCPCS: 25942; 99213; S3005

== ENCOUNTER 2023-05-04 13:30 | Outpatient (REF) | payer OTHER, SELFPAY | END 2023-05-04 13:31 | disposition home or self-care (01) | LOC: HO.LNP 13:30 | PROVIDERS: Visit Provider Advanced Practice Midwife | DX: Z13.89 Encounter for screening for other disorder (principal) ==